=== PATIENT | male | born 1990 | race Caucasian/White ===

== ENCOUNTER 2023-11-09 15:48 | Emergency (ER) | payer OTHER, SELFPAY ==
--- NOTE | ~2023-11-09 | XR_ITS ---
EXAMINATION: XR LUMBOSACRAL SPINE CLINICAL INFORMATION: Pain COMPARISON: None available. TECHNIQUE: Three views of the lumbosacral spine. FINDINGS: Osseous alignment is anatomic. There is slight disc space narrowing at L5-S1. Vertebral body heights are maintained. No acute fracture is seen. Sacroiliac joints appear intact. XR/XR lumbar spine 2-3V IMPRESSION: No acute findings identified. Slight disc space narrowing at L5-S1.
[2023-11-09 16:53] VITALS: BP 139/93; PULSE 91; RESP 16; TEMP 36.5; O2SAT 99; BMI 23.3
[2023-11-10 00:01] VITALS: BP 124/88; PULSE 78; RESP 16; TEMP 37; O2SAT 98
[2023-11-10] MEDS: predniSONE 20 MG TABLET 60 MG PO (00:34)
--- NOTE | 2023-11-10 00:38 | ED_ITS ---
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 No b/b incontinence, saddle anesthesia, IVDA, AC therapy MD elicited complaint: back pain Onset (ago): week(s) (4) Severity: severe Similar Symptoms Previously: No Quality: sharp Location: lumbar spine Radiation: left leg below the knee Exacerbating factors: movement and lifting Relieving factors: immobilization Context: while lifting Associated symptoms: numbness Work related injury: No Related Data Previous Rx's ?Medication ?Instructions ?Recorded cyclobenzaprine 10 mg tablet 10 mg PO TID PRN muscle spasm #20 11/10/23 tabs lidocaine 5 % topical patch 1 patch topical DAILY #30 ea 11/10/23 prednisone 20 mg tablet 40 mg (2 x 20 mg) PO DAILY 4 days 11/10/23 #8 tabs Allergies Allergy/AdvReac Type Severity Reaction Status Date / Time No Known Allergies Allergy Verified 11/09/23 16:55 Review of Systems Review of Systems: Constitutional : No Weight loss, No Fever, No Chills, ENT/Mouth : No Hearing loss, No Ear Pain, No Nasal Congestion, No Sinus Pain, No Hoarseness, No sore throat, No Rhinorrhea, No Swallowing Difficulty Cardiovascular : No Chest Pain, No SOB Respiratory : No Cough, No Dyspnea Gastrointestinal : No Nausea, No Vomiting, No Diarrhea, No abdominal Pain, No Hematochezia, No Melena Genitourinary : No Dysuria, No Urinary Frequency, No Hematuria, No Urinary Incontinence, Musculoskeletal : positive back pain Skin : No Skin Lesions, No rash Neuro : No Weakness, pos Numbness, No Paresthesias, no loss of bowel or bladder incontinence, no saddle anesthesia All other systems reviewed and are negative PMFSH Past Medical History Attestation statement: The following information was validated with the patient. Source: old records reviewed Medical History (Updated 11/10/23 @ 01:50 by Evelia Arthur DO) No pertinent past medical history Social History Social History (Updated 11/10/23 @ 00:43 by Evelia Arthur DO) Patient Tobacco Use Status: Never used Tobacco Use of substances other than those prescribed or required for medical reasons: No Advance Directives: No Advance Directives Information Provided: Yes Physical Exam Vital Signs: Vital Signs: Last Vital Signs Temp 98.6 F 11/10/23 00:01 Pulse 78 11/10/23 00:01 Resp 16 11/10/23 00:01 BP 124/88 11/10/23 00:01 Pulse Ox 98 11/10/23 00:01 O2 Del Method Room Air 11/10/23 00:01 BMI result Body Mass Index 23.3 Appearance: Alert. Oriented X3. No acute distress. Eyes: Pupils equal, round and reactive to light. ENT: Pharynx normal. Neck: Normal inspection. Neck supple. CVS: Normal heart rate and rhythm. Pulses normal. Respiratory: No respiratory distress. Breath sounds normal. Abdomen: Soft and nontender. Back: ttp along left lower lumbar paraspinal and SI joint area Skin: Skin warm and dry. Normal skin color. Normal skin turgor. Extremities: No lower extremity edema. No calf ttp Neuro: Oriented X 3. No motor deficit. No sensory deficit. 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 Differential Diagnosis Differential Diagnoses: The differential diagnosis associated with the presentation includes sciatica, lumbar radiculopathy Independent Interpretation I performed an independent interpretation of an: Plain X-Ray (no fracture) Radiology Impression Discussion of test interpretation with radiology: I have reviewed the radiologi st's reading. Prescription Management I considered prescription management with: Pain Medication and Other Discharge Plan Discharge Clinical Impression: Sciatica Patient Disposition: Home, Self-Care Instructions: Sciatica (ED), Lower Back Exercises (ED) Additional Instructions: return for loss of control of bowel or bladder, numbness in genital region finish medications follow up with doctor for further management you need physical therapy you need to get primary care Prescriptions: New cyclobenzaprine 10 mg tablet 10 mg PO TID PRN (Reason: muscle spasm) Qty: 20 0RF prednisone 20 mg tablet 40 mg PO DAILY 4 Days Qty: 8 0RF lidocaine 5 % adhesive patch,medicated 1 patch topical DAILY Qty: 30 0RF Rx Instructions: leave on most painful area for up to 12 hrs Stand Alone Forms: Work/School Release Print Language: Korean
[2023-11-10 02:00] VITALS: BP 117/76; PULSE 67; RESP 18; TEMP 36.8; O2SAT 98
[2023-11-10 02:04] VITALS: BP 117/76; PULSE 67; RESP 18; TEMP 36.8; O2SAT 98
== END 2023-11-10 02:06 | disposition home or self-care (01) ==
PROVIDERS: Emergency Provider Emergency Medicine
DX: M54.42 Lumbago with sciatica, left side (principal)
CPT/HCPCS: 72100; 99283; 99284